=== PATIENT | female | born 1975 | race Caucasian/White ===

== ENCOUNTER → 2017-02-13 | Outpatient (CLI) | payer SELFPAY ==
[~2017-02-13] MED LIST: ADDERALL10 MG PO; CLARITIN 1010 MG/TAB PO; CLEOCIN HC150 MG/CAP PO; DEPO-PROVER150 MG/M1 IM; LEVOXYL0.137 MG PO; NORCO 325 MG-51 TAB PO; TYLENOL W/COD1 UDTAB PO; WELLBUTRIN XL150 MG PO
== END ==
LOC: MC.RAD 09:27
DX: Z12.31 Encounter for screening mammogram for malignant neoplasm of breast (principal)

== ENCOUNTER 2017-06-02 22:27 | Emergency (ER) | payer OTHER ==
[~2017-06-02] VITALS: Ht 157.5 cm; Wt 77.7 kg
[2017-06-02 22:29] VITALS: TEMP 98.6
[2017-06-02 23:28] LABS: BASO # 0.2 (0.0-0.2); BASO % 1.7 % (0.0-2.0); EOS # 0.5 (0.0-0.7); EOS % 4.1 % (0-4.0); GRAN # 6.6 (1.4-6.5); GRAN % 56.1 % (42.2-75.2); HEMATOCRIT 42.9 % (37.0-47.0); HEMOGLOBIN 14.3 g/dl (12.5-16.0); LYMPH # 3.6 (1.2-3.4); LYMPH % 30.5 % (20.0-51.0); MEAN CELL VOLUME 86 fl (80.0-100.0); MEAN CORPUSCULAR HEMOGLOBIN 29 pg (27.0-31.0); MEAN CORPUSCULAR HGB CONC 33 g/dl (33.0-37.0); MEAN PLATELET VOLUME 9.6 fl (7.4-10.4); MONO # 0.8 (0.1-0.6); MONO % 6.9 % (1.7-9.3); PLATELET COUNT 324 K/mm3 (130-400); RED BLOOD COUNT 5.01 M/mm3 (4.10-5.30); REDCELL DISTRIBUTION WIDTH-CV 12.8 % (11.5-14.5); WHITE BLOOD COUNT 11.8 K/mm3 (4.8-10.8)
[2017-06-02 23:48] LABS: ADJUSTED CALCIUM 9.2 mg/dL (8.4-10.2); ALBUMIN 4.2 gm/dL (3.5-5.0); BILIRUBIN,TOTAL 0.7 mg/dL (0.0-1.0); C-REACTIVE PROTEIN 0.6 mg/dL (0.0-0.9); CALCIUM 9.4 mg/dL (8.4-10.2); CREATININE, serum 1.1 mg/dL (0.52-1.25); POTASSIUM 3.7 mmol/L (3.4-5.0); TOTAL PROTEIN 7.3 gm/dL (6.4-8.2)
[2017-06-02 23:53] LABS: PH 6 (5-8); SQUAMOUS EPITHELIAL 0-2 /hpf; URINE APPEARANCE Clear; URINE BACTERIA Rare /hpf; URINE BILIRUBIN Negative (NEGATIVE); URINE BLOOD 1+ (NEGATIVE); URINE COLOR Yellow; URINE GLUCOSE Negative (NEGATIVE); URINE KETONE Negative (NEGATIVE); URINE RBC 0-2 /hpf; URINE UROBILINOGEN Negative (NEGATIVE); URINE WBC 0-2 /hpf
[2017-06-03 00:54] VITALS: BP 132/86; PULSE 99
== END 2017-06-03 01:02 | disposition home or self-care (01) ==
LOC: COL.ER 22:27
PROVIDERS: Family Medicine
DX: R10.31 Right lower quadrant pain (principal); R31.9 Hematuria, unspecified; E03.9 Hypothyroidism, unspecified; Z90.49 Acquired absence of other specified parts of digestive tract
CPT/HCPCS: J1170; J2405; J7030; Q9967

== ENCOUNTER → 2020-09-15 | Outpatient (CLI) | payer OTHER | LOC: MC.RAD 07:32 | DX: Z12.31 Encounter for screening mammogram for malignant neoplasm of breast (principal) ==